=== PATIENT | male | born 1965 | race Caucasian/White ===

== ENCOUNTER 2022-10-12 10:17 | Inpatient (IN) | payer BC ==
[2022-10-12] VITALS (8 sets, daily range): BP systolic 105–113; BP diastolic 64–75; PULSE 72–96; RESP 18–22; TEMP 97.7–97.9; O2SAT 95–98
[~2022-10-12] VITALS: Ht 172.7 cm; Wt 167.8 kg
[2022-10-12] MEDS ORDERED: KETOROLAC TROMETHAMINE 30 MG/ML VIAL IV STA (10:44)
[2022-10-12] MEDS ORDERED: DIPHENHYDRAMINE HCL 25 MG CAP PO ONE (10:45)
[2022-10-12] MEDS ORDERED: SODIUM CHLORIDE 0.9% 1000ML 1,000 ML IV SCH (10:45)
[2022-10-12] MEDS ORDERED: METOCLOPRAMIDE HCL 10 MG/2ML VIAL IV ONE (10:45)
[2022-10-12 10:52] LABS: BASOPHILS % 0.2 % (0.0-1.0); EOSINOPHILS % 0.3 % (0.0-6.0); HEMATOCRIT 40.4 % (38.2-49.6); HEMOGLOBIN 13.2 g/dL (14.0-18.0); LYMPHOCYTES # (AUTO) 1.5 (1.0-3.2); LYMPHOCYTES % 14.3 % (18.0-39.1); MEAN CORPUSCULAR HEMOGLOBIN 31.4 pg (28-32); MEAN CORPUSCULAR HGB CONC 32.7 g/dL (31-35); MEAN CORPUSCULAR VOLUME 96.2 fL (81-99); MONOCYTES # (AUTO) 0.5 (0.2-0.8); NEUTROPHILS # (AUTO) 8.3 (2.1-6.9); NEUTROPHILS % 79.9 % (38.7-80.0); PLATELET COUNT 181 x10e3/uL (140-360); RED CELL DISTRIBUTION WIDTH 13.7 % (11.7-14.4)
[2022-10-12 11:19] LABS: ALBUMIN 3.4 g/dL (3.5-5.0); ALBUMIN/GLOBULIN RATIO 0.9 (0.8-2.0); ANION GAP 13.7 mmol/L (8-16); CALCIUM 8.6 mg/dL (8.4-10.2); CREATININE, SERUM 0.78 mg/dL (0.72-1.25); POTASSIUM 3.7 mmol/L (3.5-5.1)
[2022-10-12] MEDS ORDERED: DIPHENHYDRAMINE HCL INJ 50 MG/ML VIAL ONE (11:20)
[2022-10-12] MEDS ORDERED: DIPHENHYDRAMINE HCL INJ 50 MG/ML VIAL IV ONE (11:30)
[2022-10-12 11:42] LABS: ABG HCO3 35 mmol/L (22-26); ABG PCO2 64 mmHg (35-45); ABG PH 7.35 (7.35-7.45); ABG PO2 83 mmHg (80-105); ABG TCO2 37
[2022-10-12] MEDS ORDERED: ALBUTEROL/IPRATROPIUM 3 ML NEB NEB ONE (11:45)
[2022-10-12] MEDS ORDERED: IOPAMIDOL 370 MG/ML 100 ML INFUS..BTL INJ ONE (12:08)
[2022-10-12] MEDS ORDERED: ONDANSETRON HCL INJ 2MG/ML 2ML 2 MG/ML VIAL IV PRN (12:15)
[2022-10-12] MEDS ORDERED: BENAZEPRIL HCL40 MG PO (14:23)
[2022-10-12] MEDS ORDERED: DOXAZOSIN MESYLA2 MG PO (14:23)
[2022-10-12] MEDS ORDERED: ALLOPURINOL100 MG PO (14:23)
[2022-10-12] MEDS ORDERED: METHOCARBAMOL750 MG PO (14:23)
[2022-10-12] MEDS ORDERED: NEURONTIN300 MG PO (14:23)
[2022-10-12] MEDS ORDERED: PRISTIQ ER50 MG PO (14:23)
[2022-10-12] MEDS ORDERED: PAMELOR25 MG PO (14:23)
[2022-10-12] MEDS ORDERED: ALBUTEROL1.25 MG/3 NEB (14:24)
[2022-10-12] MEDS ORDERED: HYDROCHLOROTHIA25 MG PO (14:24)
[2022-10-12] MEDS: Morphine 4mg INJECTION 4 MG/ML INJ IV PRN (17:32)
[2022-10-12] MEDS ORDERED: TEMAZEPAM 7.5 MG CAP PO PRN (20:30)
[2022-10-12] MEDS ORDERED: ACETAMINOPHEN 325 MG TAB PO PRN (20:30)
[2022-10-12] MEDS ORDERED: POLYETHYLENE GLYCOL 3350 17 GM PACK PO PRN (20:30)
[2022-10-12] MEDS ORDERED: METOPROLOL TARTRATE INJ 1 MG/ML VIAL IV PRN (20:30)
[2022-10-13] VITALS (10 sets, daily range): BP systolic 112–148; BP diastolic 69–88; PULSE 78–95; RESP 15–20; TEMP 97.1–98; O2SAT 96–98
[2022-10-13] MEDS: Morphine 4mg INJECTION 4 MG/ML INJ IV PRN (04:54)
[2022-10-13] MEDS: ACETAMIN/BUTALBITAL/CAFFEINE TAB PO PRN ×3 (04:54→14:27)
[2022-10-13 04:56] LABS: BASOPHILS % 0.3 % (0.0-1.0); EOSINOPHILS # (AUTO) 0.1 (0.0-0.4); EOSINOPHILS % 0.8 % (0.0-6.0); HEMATOCRIT 43.7 % (38.2-49.6); HEMOGLOBIN 13.7 g/dL (14.0-18.0); LYMPHOCYTES # (AUTO) 1.9 (1.0-3.2); LYMPHOCYTES % 21.5 % (18.0-39.1); MEAN CORPUSCULAR HEMOGLOBIN 31.6 pg (28-32); MEAN CORPUSCULAR HGB CONC 31.4 g/dL (31-35); MEAN CORPUSCULAR VOLUME 100.7 fL (81-99); MONOCYTES # (AUTO) 0.6 (0.2-0.8); MONOCYTES % 6.5 % (4.4-11.3); NEUTROPHILS # (AUTO) 6.1 (2.1-6.9); NEUTROPHILS % 70.6 % (38.7-80.0); PLATELET COUNT 172 x10e3/uL (140-360); RED BLOOD COUNT 4.34 x10e6/uL (4.3-5.7); RED CELL DISTRIBUTION WIDTH 13.7 % (11.7-14.4)
[2022-10-13 05:13] LABS: ANION GAP 12.9 mmol/L (8-16); CALCIUM 8.7 mg/dL (8.4-10.2); CREATININE, SERUM 0.84 mg/dL (0.72-1.25); POTASSIUM 3.9 mmol/L (3.5-5.1)
[2022-10-13 05:25] LABS: CHOL/HDL RATIO 2.7 (3.9-4.7); PHOSPHORUS 3.7 MG/DL (2.3-4.7)
[2022-10-13 05:46] LABS: THYROID STIMULATING HORMONE 0.757 uIU/mL (0.350-4.940)
[2022-10-13] MEDS: FAMOTIDINE 20 MG TAB PO SCH ×2 (09:14→17:12)
[2022-10-13] MEDS: DOCUSATE SODIUM 100 MG CAP PO SCH ×2 (09:14→17:12)
[2022-10-13] MEDS ORDERED: TEMAZEPAM 15 MG CAP PO PRN (14:00)
[2022-10-13] MEDS ORDERED: ONDANSETRON HCL 4 MG ORAL DISINTEGRATING TAB PO PRN (14:00)
[2022-10-13] MEDS ORDERED: HYDROCODONE/APAP 7.5MG-325MG 1 EA TAB PO PRN (15:15)
[2022-10-13] MEDS ORDERED: SUMATRIPTAN SUCCINATE 25 MG TAB PO ONE (15:45)
[2022-10-14 07:55] VITALS: PULSE 78; RESP 20; O2SAT 98
[2022-10-14 08:04] VITALS: BP 126/90; PULSE 90; RESP 18; TEMP 98.3; O2SAT 93
[2022-10-14] MEDS: FAMOTIDINE 20 MG TAB PO SCH (08:41)
[2022-10-14] MEDS: DOCUSATE SODIUM 100 MG CAP PO SCH (08:42)
[2022-10-14] MEDS ORDERED: TOPIRAMATE 25 MG TAB PO SCH (09:00)
[2022-10-14 11:38] VITALS: BP 138/95; PULSE 92; RESP 20; TEMP 98.4; O2SAT 96
[2022-10-14] MEDS ORDERED: ACETAMINOPHEN325 M1 PO (13:25)
[2022-10-14] MEDS ORDERED: FIORICET 50-301 EACH PO (13:25)
[2022-10-14] MEDS ORDERED: ONDANSETRON ODT4 MG PO (13:25)
== END 2022-10-14 15:09 | disposition home or self-care (01) | DRG 206 ==
LOC: ER 10:24 → ERHOLD 12:04 → MED/SURG3 13:43
PROVIDERS: ADMIT Internal Medicine; ATTEND Internal Medicine
DX: E66.2 Morbid (severe) obesity with alveolar hypoventilation (principal); Z68.43 Body mass index [BMI] 50.0-59.9, adult; J98.11 Atelectasis; Z71.3 Dietary counseling and surveillance; G47.33 Obstructive sleep apnea (adult) (pediatric); G43.909 Migraine, unspecified, not intractable, without status migrainosus; I10 Essential (primary) hypertension; R09.02 Hypoxemia; F41.9 Anxiety disorder, unspecified
CPT/HCPCS: 36415; 70450; 71045; 71260; 80048; 80053; 80061; 82805; 83036; 83605; 83735; 83880; 84100; 84443; 84484; 85025; 87040; 93005; 94640; 94799; 99285; J1200; J1885; J2270; J2765; J7030; Q9967